=== PATIENT | male | born 1990 ===

== ENCOUNTER 2018-03-23 13:06 | Inpatient (IN) ==
[2018-03-23] MEDS ORDERED: Acetaminophen 325 MG Tablet PO PRN (17:33)
[2018-03-23] MEDS ORDERED: Aluminum/Magnesium/Simethacone Susp 30 ML UDC PO PRN (17:33)
[2018-03-24 06:18] VITALS: BP 165/62; PULSE 72; RESP 17; TEMP 97.4; O2SAT 100
--- NOTE | 2018-03-24 11:02 | P.HPPSY ---
Provisional Diagnosis Admission Date: March 23, 2018 16:29 [place] I.: Adjustment disorder with mixed disturbances of emotion and conduct, marijuana abuse Competence Certification of Person's Competence To Provide Express and Informed Consent I have personally examined Rush Blackmon, a person being served at [facility] on, March 24, 2018 1051. Express and informed consent means consent voluntarily given in writing, by a competent person, after sufficient explanation and disclosure of the subject matter involved to enable the person to make a knowing and willful decision without any element of force, fraud, deceit, duress, or other form of constraint or coercion. This person is 18 years of age or older, is not now known to be incompetent to consent to treatment with a guardian advocate, and does not have a health care surrogate or proxy currently making medical treatment decisions. I have found this person to be one of the following: [xxx] Competent to provide express and informed consent, as defined above, for voluntary admission to this facility and is competent to provide express and informed consent for treatment. He/she has the consistent capacity to make well reasoned, willful, and knowing decisions concerning his or her medical or mental health treatment. The person fully and consistently understands the purpose of the admission for examination/placement and is fully capable of personally exercising all rights assured [place] [] Incompetent to provide express and informed consent to voluntary admission, and this is incompetent to provide express and informed consent to treatment. The person must be transferred to involuntary status and a petition for a guardian advocate filed with the Circuit Court. [] Refusing to provide express and informed consent to voluntary admission but is competent to provide express and informed consent for treatment. The person must be discharged or transferred to involuntary status. Form shall be completed within 24 hours of a person's arrival at the receiving facility and filed in the clinical record of each person: 1. Admitted on a voluntary basis 2. Permitted to provide express and informed consent to his/her own treatment 3. Allowed to transfer from involuntary to voluntary status 4. Prior to permitting a person to consent to his or her own treatment after having been previously found incompetent to consent to treatment. History of Present Illness Capacity: Has capacity History of Present Illness: Patient is a 27-year-old white male who comes here from [facility] in [place] under Skelton act signed by amie Hawley dated 03/23/2018 at 6:55 AM stating patient told psychiatrist is hearing voices has suicidal thoughts and plans to cut himself. Patient seen screen that facility urine toxicology positive for marijuana negative for alcohol. At the present time patient quietly in his room on 2700 counselor Cuca present throughout session. Patient is alert oriented white male appears stated age sitting calmly will us. States she is thinking about wanting to get back on his "medications" though it appears she has been off his medication for multiple months 6-7 months. That it may been prescribed from some type of clinic in [place]. He somewhat reluctantly acknowledge that he has had some mental health contact as an adolescent through his parents perhaps is some type of ADD behaviors he has been on various medications in the past. He states he was on Depakote and Neurontin and and Remeron. It appears she has been living with a young man and this man's father for about the past 3 months though he states he is close to his family of origin and has other friends in whom he can stay. It appears that this environment is becoming more more stressful for him causing him anxiety. I feel this may be somewhat of a motivation for the use behaviors. It appears what he wants our prescriptions and then to be discharged. He denies suicidality homicidality voices or visions. Denies alcohol use acknowledges occasional use of marijuana. He states he does have friends there is sexual preference is heterosexual. He denies any physical or sexual abuse. He is vague about any psychiatric hospitalizations even as an adolescent. We did discuss the possibility of a 2-3 day stay with us to start him on a medication. He declined that stating he wants to be discharged tomorrow. I will respect the patient's wishes with that she does not meet criteria for involuntary psychiatric hospitalization and I do feel uncomfortable sending medication and discharging him in less than 24 hours. Thus patient will be discharged today we will arrange transportation for him to return to the [facility] patient to call the local mental health clinic where he was seen before range and appointment to be followed up by a clinician at that facility for further care and attention. Also suggested absolute abstinence - Inpatient Certification I certify that the inpatient services were ordered in accordance with Medicare regulations governing the order. This includes certification that hospital inpatient services are reasonable and necessary and in the case of services not specified as inpatient-only under 42 CFR 419.22(n), that they are appropriately provided as inpatient services in accordance to with the 2-midnight benchmark under 43 CFR 412.3(e) I certify that inpatient psychiatric hospital services are medically necessary. Evaluation and treatment and/or diagnostic testing are expected to improve the patient's condition. The patient needs on a daily basis, active treatment furnished directly by or requiring the supervision of inpatient psychiatric facility personnel. Estimated Total Length of Stay (Days): 1 Plans for Post Hospital Care: Home Review of Systems All other systems reviewed negative except as stated in HPI PMFSH - History History Provided By: Patient, Medical Record - Tobacco History Second Hand Smoke Exposure: Yes Tobacco Use In Past 30 Days: Yes Smoking Status: Current some day smoker Tobacco Type: Cigarettes - Alcohol History How Often Do You Have a Drink Containing Alcohol: 2 to 3 times a week - Substance Use History Substance History: No History of Abuse Quality Measures - Psychiatric History Psychological trauma history: Patient denies Violence risk to others in the last 6 months: Patient denies Violence risk to self in the last 6 months: Patient denies - Substance Abuse History Drug or alcohol use in the past 12 months: Patient regular user of marijuana - Patient Strengths Patient's strengths (minimum of 2): Patient verbal able access healthcare Medications and Allergies Active Medications: Active Medications Acetaminophen (Tylenol) 650 mg PO Q4H PRN PRN Reason: Pain 1-5 or Temp >101F Al Hydrox/Mg Hydrox/Simethicone (Mag-Al Plus Susp Liq) 30 ml PO Q6H PRN PRN Reason: DYSPEPSIA Al Hydroxide/Mg Hydroxide (Milk Of Magnesia Liq) 30 ml PO Q12H PRN PRN Reason: Mild Constipation Nicotine (Habitrol 21 Mg Patch.24 Hr) 1 patch T-DERMAL DAILY RUIZ Last Admin: 03/24/18 09:56 Dose: 1 patch Allergies Allergy/AdvReac Type Severity Reaction Status Date / Time No Known Allergies Allergy Unverified 03/23/18 16:50 Exam Vital signs: Vital Signs 03/23/18 19:27 03/24/18 06:16 Temperature 97.6 F 97.4 F L Pulse Rate 71 72 Respiratory Rate 14 17 Blood Pressure 145/90 H 165/62 H Pulse Oximetry 100 Intake & Output 03/23/18 03/24/18 03/24/18 18:59 06:59 18:59 Weight 98.1 kg Other: Weight On Admission 98.1 kg Narrative: Patient seen in his room patient no acute distress, no complaints of respiratory pain no complaints of chest pain or abdominal pain. Patient moving all 4 extremities without difficulty Mental Status Examination Appearance: Appropriate Consciousness: Alert Orientation: x4 Motor Activity: Normal gait Speech: Unremarkable Language: Adequate Fund of Knowledge: Adequate Attention and Concentration: Adequate Memory: Unremarkable Mood: Other Affect: Other (Slight decreased range and intensity) Thought Process & Associations: Intact Thought Content: Appropriate Hallucination Type: None Delusion Type: None Suicidal Ideation: No Suicidal Plan: No Suicidal Intention: No Homicidal Ideation: No Homicidal Plan: No Homicidal Intention: No Insight: Fair Judgment: Adequate (Fair) Assessment and Plan - Assessment (1) Adjustment disorder with mixed disturbance of emotions and conduct Code(s): F43.25 - Adjustment disorder with mixed disturbance of emotions and conduct Status: Acute (2) Marijuana abuse Code(s): F12.10 - Cannabis abuse, uncomplicated Status: Acute - Plan Plan: Estimated LOS: [] days At this time patient does not appear psychotic, he denies suicidality homicidality voice or visions. Patient to have his Skelton act lifted. Patient to be discharged today to himself L faxed to arrange transportation back to [place], patient to be referred to the mental health clinic in that location for further care and attention. Patient also recommended to stop marijuana use Justification for Continued Inpatient Stay: Patient to be discharged today Discharge Planning: Patient return to [place] to family or friends Request Healthcare Surrogate/Guardian Advocate?: No
--- NOTE | 2018-03-24 11:06 | P.DSPSY ---
Psychiatry Discharge Summary Inpatient Psychiatric care?: Yes Advance Directives: Unknown Reason for Unknown:: Other Mental Health Advance Directive: No Health Care Proxy: No - Admission Admission Date: March 23, 2018 16:29 - Admission Diagnosis (1) Adjustment disorder with mixed disturbance of emotions and conduct Code(s): F43.25 - Adjustment disorder with mixed disturbance of emotions and conduct (2) Marijuana abuse Code(s): F12.10 - Cannabis abuse, uncomplicated Brief History: Patient is a 27-year-old white male who comes here from [facility] in [place] under Skelton act signed by amie Hawley dated 03/23/2018 at 6:55 AM stating patient told psychiatrist is hearing voices has suicidal thoughts and plans to cut himself. Patient seen screen that facility urine toxicology positive for marijuana negative for alcohol. At the present time patient quietly in his room on 2700 counselor Cuca present throughout session. Patient is alert oriented white male appears stated age sitting calmly will us. States she is thinking about wanting to get back on his "medications" though it appears she has been off his medication for multiple months 6-7 months. That it may been prescribed from some type of clinic in [facility]. He somewhat reluctantly acknowledge that he has had some mental health contact as an adolescent through his parents perhaps is some type of ADD behaviors he has been on various medications in the past. He states he was on Depakote and Neurontin and and Remeron. It appears she has been living with a young man and this man's father for about the past 3 months though he states he is close to his family of origin and has other friends in whom he can stay. It appears that this environment is becoming more more stressful for him causing him anxiety. I feel this may be somewhat of a motivation for the use behaviors. It appears what he wants our prescriptions and then to be discharged. He denies suicidality homicidality voices or visions. Denies alcohol use acknowledges occasional use of marijuana. He states he does have friends there is sexual preference is heterosexual. He denies any physical or sexual abuse. He is vague about any psychiatric hospitalizations even as an adolescent. We did discuss the possibility of a 2-3 day stay with us to start him on a medication. He declined that stating he wants to be discharged tomorrow. I will respect the patient's wishes with that she does not meet criteria for involuntary psychiatric hospitalization and I do feel uncomfortable sending medication and discharging him in less than 24 hours. Thus patient will be discharged today we will arrange transportation for him to return to the [facility] patient to call the local mental health clinic where he was seen before range and appointment to be followed up by a clinician at that facility for further care and attention. Also suggested absolute abstinence Tobacco Use In Past 30 Days: Yes How Often Do You Have a Drink Containing Alcohol: 2 to 3 times a week Hospital Course: Please see dictation under brief history. Patient denies suicidality homicidality voice or visions. He no longer meets Skelton criteria lift Skelton act. Patient will be discharged to himself with L faxed to help arrange transportation to [place] follow-up mental health clinic in that. - Discharge Discharge Date: 03/24/18 - Discharge Diagnosis (1) Adjustment disorder with mixed disturbance of emotions and conduct Diagnosis: Principal Code(s): F43.25 - Adjustment disorder with mixed disturbance of emotions and conduct Status: Acute (2) Marijuana abuse Diagnosis: Secondary Code(s): F12.10 - Cannabis abuse, uncomplicated Status: Acute Discharge Disposition: Home - Discharge Instructions Discharge Diet: Regular Diet Activities You Can Perform: Regular- No Restrictions - Discharge Time > 30 minutes Mental Status Examination Appearance: Appropriate Consciousness: Alert Orientation: x4 Motor Activity: Normal gait Speech: Unremarkable Language: Adequate Fund of Knowledge: Adequate Attention and Concentration: Adequate Memory: Unremarkable Mood: Other Affect: Other (Slight decreased range and intensity) Thought Process & Associations: Intact Thought Content: Appropriate Hallucination Type: None Delusion Type: None Suicidal Ideation: No Suicidal Plan: No Suicidal Intention: No Homicidal Ideation: No Homicidal Plan: No Homicidal Intention: No Insight: Fair Judgment: Adequate (Fair) Discharge/Advance Care Plan - Results Vital Signs: Last Vital Signs Temp 97.4 F L 03/24/18 06:16 Pulse 72 03/24/18 06:16 Resp 17 03/24/18 06:16 BP 165/62 H 03/24/18 06:16 Pulse Ox 100 03/24/18 06:16 Lab Results: Urine toxicology positive for marijuana and other facility Summary of Procedures: None done Pending Results: None - Medications Number of antipsychotic medications at discharge: 0 - Discharge Care Plan Goals to Promote Your Health: * To prevent worsening of your condition and complications * To maintain your health at the optimal level Directions to Meet Your Goals: Take your medications as prescribed Follow your dietary instruction Follow activity as directed Keep your appointments as scheduled Take your immunizations and boosters as scheduled If your symptoms worsen call your PCP, if no PCP go to Urgent Care Center or Emergency Room For 12/02 questions related to your inpatient stay or results of tests pending at discharge, please contact Dr. Link Gutierrez MD at Smoking is Dangerous to Your Health. Avoid second hand smoking
[2018-03-24 11:50] LABS: Anion Gap 11 meq/L (5-15); Calcium 8.7 mg/dL (8.5-10.1); Carbon Dioxide 25.9 meq/L (21.0-32.0); Chloride 107 meq/L (98-107); Cholesterol 127 mg/dL (120-200); Glomerular Filtration Rate Greater Than 89 mL/min (>89); Glucose,Random 103 mg/dL (74-106); Potassium 3.7 meq/L (3.5-5.1); Sodium 144 meq/L (136-145); Triglycerides 211 mg/dL (42-150)
[2018-03-24 11:58] LABS: Blood Urea Nitrogen 7 mg/dL (7-18); Chol/HDL Ratio 3.71 Ratio; HDL Cholesterol 34.2 mg/dL (40.0-60.0); LDL Cholesterol,Calculated 51 mg/dL (0-99)
[2018-03-24 13:05] LABS: Hemoglobin A1c 4.5 % (4.3-6.0)
== END 2018-03-24 12:11 | disposition home or self-care (01) ==
LOC: H270 16:29
PROVIDERS: ADMIT Psychiatry & Neurology Psychiatry; ATTEND Psychiatry & Neurology Psychiatry